=== PATIENT | male | born 1935 | race Caucasian/White ===

== ENCOUNTER 2016-08-31 13:01 | Emergency (ER) | payer OTHER ==
[2016-08-31 13:08] VITALS: RESP 16; TEMP 98.2
[2016-08-31] MEDS ORDERED: NS 1,000 ML IV ONE (13:25)
[2016-08-31] MEDS ORDERED: PANTOPRAZOLE SODIUM 40 MG in NS 100 ML IV ONE (13:26)
--- NOTE | 2016-08-31 13:29 | EDPHY ---
H & P Stated Complaint: black tarry stool starting this am, mild gen abd pain Time Seen by Provider: 08/31/16 13:11 HPI/ROS: CHIEF COMPLAINT: Dark stool HISTORY OF PRESENT ILLNESS: The patient is an 81-year-old man with a history of only of hypertension and BPH who is visiting from [place] and comes to the emergency department with his sons says complaining of 2 episodes of black stool today. 1 was formed 1 was loose. He also has some chronic abdominal discomfort. He states that he has had this discomfort for about 4 years as well as occasionally Hemoccult positive stool but no abdominal pain. His last colonoscopy was about 5 or 6 years ago and had a couple benign polyps. His primary MD and is recommending has another. The he denies any history of GERD. He denies chest pain. Denies shortness of breath or lightheadedness. He has not had a fever. He is passing gas. His abdomen is not tender. REVIEW OF SYSTEMS: Constitutional: denies: chills, fever, recent illness, recent injury EENTM: denies: blurred vision, double vision, nose congestion Respiratory: denies: cough, shortness of breath Cardiac: denies: chest pain, irregular heart rate, lightheadedness, palpitations Gastrointestinal/Abdominal: See HPI Genitourinary: denies: dysuria, frequency, hematuria, pain Musculoskeletal: denies: joint pain, muscle pain Skin: denies: lesions, rash, jaundice, bruising Neurological: denies: headache, numbness, paresthesia, tingling, dizziness, weakness Hematologic/Lymphatic: denies: blood clots, easy bleeding, easy bruising Immunologic/allergic: denies: HIV/AIDS, transplant EXAM: GENERAL: Well-appearing, well-nourished and in no acute distress. HEAD: Atraumatic, normocephalic. EYES: Pupils equal round and reactive to light, extraocular movements intact, sclera anicteric, conjunctiva are normal. ENT: TMs normal, nares patent, oropharynx clear without exudates. Moist mucous membranes. NECK: Normal range of motion, supple without lymphadenopathy or JVD. LUNGS: Breath sounds clear to auscultation bilaterally and equal. No wheezes rales or rhonchi. HEART: Regular rate and rhythm without murmurs, rubs or gallops. ABDOMEN: Soft, nontender, normoactive bowel sounds. No guarding, no rebound. No masses appreciated. : Patient has dark black formed stool, no visible hemorrhoids or fissures, no tenderness BACK: No CVA tenderness, no spinal tenderness, step-offs or deformities EXTREMITIES: Normal range of motion, no pitting or edema. No clubbing or cyanosis. NEUROLOGICAL: Cranial nerves II through XII grossly intact. Normal speech, normal gait. 5/5 strength, normal movement in all extremities, normal sensation PSYCH: Normal mood, normal affect. SKIN: Warm, dry, normal turgor, no visible rashes or lesions. Source: Patient Exam Limitations: No limitations - Personal History Current Tetanus/Diphtheria Vaccine: Unsure Current Tetanus Diphtheria and Acellular Pertussis (TDAP): Unsure - Medical/Surgical History Hx Asthma: No Hx Chronic Respiratory Disease: No Hx Diabetes: No Hx Cardiac Disease: No Hx Renal Disease: No Hx Cirrhosis: No Hx Alcoholism: No Hx HIV/AIDS: No Hx Splenectomy or Spleen Trauma: No Other PMH: htn. BPH. colonoscopy polyps benign 2012 - Family History Significant Family History: No pertinent family hx - Social History Smoking Status: Never smoked Alcohol Use: Sober Drug Use: None Constitutional: Initial Vital Signs Temperature (C) 36.8 C 08/31/16 13:04 Heart Rate 84 08/31/16 13:04 Respiratory Rate 16 08/31/16 13:04 Blood Pressure 167/86 H 08/31/16 13:04 O2 Sat (%) 97 08/31/16 13:04 O2 Delivery Mode Room Air Allergies/Adverse Reactions: sulfamethoxazole [From Bactrim] Allergy (Verified 08/31/16 13:03) trimethoprim [From Bactrim] Allergy (Verified 08/31/16 13:03) Home Medications: Medication Instructions Recorded Flomax 08/31/16 Lisinopril 08/31/16 Pantoprazole Sodium [Protonix] 40 mg PO DAILY #30 tab 08/31/16 Medical Decision Making - Diagnostics Imaging Results: Imaging Impressions Abdomen CT 08/31/16 13:26 Impression: 1. Duodenal inflammation. Correlation with endoscopy is recommended to exclude ulceration. 2. Diverticulosis without evidence of diverticulitis. No CT evidence of colitis or proctitis. 3. Atherosclerotic disease. Results discussed with Dr. Berger. General information for patients regarding this examination can be found at [email or web address]. If you have questions or comments about this report, please contact me at (hospital) or [phone] (cell). Imaging: Discussed imaging studies w/ communication center operator Radiologist ED Course/Re-evaluation: We discussed the test results. Patient continues to wish to go home and follow up with his primary doctors in [place]. He is flying out on Friday. His abdominal exam remains benign. His vital signs remained stable. His hematocrit is 29. 3:30 p.m. we discussed the patient's CT results which are reassuring. He has some duodenal inflammation consistent with ulcer possibly carcinoma. He and his sons understand this. They will follow up with her doctors in [place]. His vital signs remained stable. I did offer admission and workup here but they declined. We discussed symptoms to watch for indications for returning. Differential Diagnosis: Partial list of the Differential diagnosis considered include but were not limited to; duodenal ulcer, gastric cancer, colon cancer, anemia and although unlikely based on the history and physical exam, I also considered diverticulitis, appendicitis, perforation, ischemia. I discussed these differential diagnoses and the plan with the patient as well as the usual and expected course. The patient understands that the diagnosis is provisional and that in medicine we are not always correct and that further workup is often warranted. Usual and customary warnings were given. All of the patient's questions were answered. The patient was instructed to return to the emergency department should the symptoms at all worsen or return, otherwise to followup with the physician as we discussed. - Data Points Laboratory Results: Laboratory Results 08/31/16 13:30 08/31/16 13:30 08/31/16 08/31/16 08/31/16 13:30 13:30 13:30 WBC 8.08 10^3/uL 10^3/uL (3.80-9.50) RBC 4.09 10^6/uL L 10^6/uL (4.40-6.38) Hgb 13.3 g/dL L g/dL (13.7-17.5) Hct 38.3 % L % (40.0-51.0) MCV 93.6 fL fL (81.5-99.8) MCH 32.5 pg pg (27.9-34.1) MCHC 34.7 g/dL g/dL (32.4-36.7) RDW 12.9 % % (11.5-15.2) Plt Count 186 10^3/uL 10^3/uL (150-400) MPV 9.0 fL fL (8.7-11.7) Neut % (Auto) 74.0 % % (39.3-74.2) Lymph % (Auto) 14.4 % L % (15.0-45.0) Rosebud % (Auto) 9.5 % % (4.5-13.0) Eos % (Auto) 1.0 % % (0.6-7.6) Baso % (Auto) 0.6 % % (0.3-1.7) Nucleat RBC Rel Count 0.0 % % (0.0-0.2) Absolute Neuts (auto) 5.98 10^3/uL 10^3/uL (1.70-6.50) Absolute Lymphs (auto) 1.16 10^3/uL 10^3/uL (1.00-3.00) Absolute Monos (auto) 0.77 10^3/uL 10^3/uL (0.30-0.80) Absolute Eos (auto) 0.08 10^3/uL 10^3/uL (0.03-0.40) Absolute Basos (auto) 0.05 10^3/uL 10^3/uL (0.02-0.10) Absolute Nucleated RBC 0.00 10^3/uL 10^3/uL (0-0.01) Immature Gran % 0.5 % % (0.0-1.1) Immature Gran # 0.04 10^3/uL 10^3/uL (0.00-0.10) PT 13.7 SEC SEC (12.0-15.0) INR 1.06 (0.83-1.16) APTT 24.5 SEC SEC (23.0-38.0) Sodium 141 mEq/L mEq/L (134-144) Potassium 4.0 mEq/L mEq/L (3.5-5.2) Chloride 105 mEq/L mEq/L (97-110) Carbon Dioxide 26 mEq/l mEq/l (22-31) Anion Gap 10 mEq/L mEq/L (8-16) BUN 48 mg/dL H mg/dL (7-23) Creatinine 1.2 mg/dL mg/dL (0.7-1.3) Estimated GFR 58 Glucose 123 mg/dL H mg/dL (70-100) Calcium 8.7 mg/dL mg/dL (8.5-10.4) Total Bilirubin 0.8 mg/dL mg/dL (0.1-1.4) Conjugated Bilirubin 0.4 mg/dL mg/dL (0.0-0.5) Unconjugated Bilirubin 0.4 mg/dL mg/dL (0.0-1.1) AST 24 IU/L IU/L (17-59) ALT 36 IU/L IU/L (21-72) Alkaline Phosphatase 74 IU/L IU/L (38-126) Total Protein 6.5 g/dL g/dL (6.3-8.2) Albumin 3.9 g/dL g/dL (3.5-5.0) Lipase 104.0 IU/L IU/L (23-300) Stool Occult Bld Scrn 08/31/16 13:20 WBC RBC Hgb Hct MCV MCH MCHC RDW Plt Count MPV Neut % (Auto) Lymph % (Auto) Rosebud % (Auto) Eos % (Auto) Baso % (Auto) Nucleat RBC Rel Count Absolute Neuts (auto) Absolute Lymphs (auto) Absolute Monos (auto) Absolute Eos (auto) Absolute Basos (auto) Absolute Nucleated RBC Immature Gran % Immature Gran # PT INR APTT Sodium Potassium Chloride Carbon Dioxide Anion Gap BUN Creatinine Estimated GFR Glucose Calcium Total Bilirubin Conjugated Bilirubin Unconjugated Bilirubin AST ALT Alkaline Phosphatase Total Protein Albumin Lipase Stool Occult Bld Scrn POSITIVE H (NEGATIVE) Medications Given: Discontinued Medications Sodium Chloride (Ns) 1,000 mls @ 0 mls/hr IV ONCE ONE PRN Reason: Wide Open Stop: 08/31/16 13:26 Last Admin: 08/31/16 13:38 Dose: 1,000 mls Pantoprazole Sodium 40 mg/ (Sodium Chloride) 100 mls @ 200 mls/hr IV EDNOW ONE Stop: 08/31/16 13:55 Last Admin: 08/31/16 14:03 Dose: 100 mls Pantoprazole Sodium (Protonix) 40 mg PO EDNOW ONE Stop: 08/31/16 15:29 Last Admin: 08/31/16 15:44 Dose: 40 mg Departure - Departure Disposition: Home, Routine, Self-Care Clinical Impression: Upper GI bleed Condition: Fair Instructions: Gastrointestinal Bleeding (ED) Additional Instructions: Follow-up with your doctor for upper endoscopy. You have some inflammation in her duodenum anti stool that is Hemoccult positive. Suspect 1 ulcer but cannot rule out cancer. Return to the emergency department immediately few of lightheadedness weakness or bloody vomit or increased bloody stool. Referrals: KEKE WESTON [Other] - As per Instructions Prescriptions: Pantoprazole Sodium [Protonix] 40 mg PO DAILY #30 tab
[2016-08-31 13:42] LABS: % IMMATURE GRANULYOCYTES 0.5 % (0.0-1.1); ABSOLUTE IMMATURE GRANULOCYTES 0.04 10^3/uL (0.00-0.10); ADD DIFF? NO; ADD MORPH? NO; ADD SCAN? NO; ATYPICAL LYMPHOCYTE FLAG 0 (0-99); FRAGMENT RBC FLAG 0 (0-99); HEMATOCRIT 38.3 % (40.0-51.0); HEMOGLOBIN 13.3 g/dL (13.7-17.5); LEFT SHIFT FLG 10 (0-99); LIPEMIA HEMOLYSIS FLAG 90 (0-99); MEAN CELL HEMOGLOBIN 32.5 pg (27.9-34.1); MEAN CELL HEMOGLOBIN CONCENTR. 34.7 g/dL (32.4-36.7); MEAN CELL VOLUME 93.6 fL (81.5-99.8); PLATELET CLUMPS FLAG 10 (0-99); PLATELET COUNT 186 10^3/uL (150-400); RED BLOOD CELL COUNT 4.09 10^6/uL (4.40-6.38); RED CELL DISTRIBUTION WIDTH 12.9 % (11.5-15.2)
[2016-08-31 13:45] VITALS: O2SAT 96
[2016-08-31 13:50] LABS: APTT 24.5 SEC (23.0-38.0); INR 1.06 (0.83-1.16); PROTIME(PATIENT) 13.7 SEC (12.0-15.0)
[2016-08-31 13:57] LABS: ALANINE AMINOTRANSFERASE 36 IU/L (21-72); ALBUMIN 3.9 g/dL (3.5-5.0); ALKALINE PHOSPHATASE 74 IU/L (38-126); ANION GAP 10 mEq/L (8-16); ASPARTATE AMINOTRANSFERASE 24 IU/L (17-59); BILIRUBIN,TOTAL 0.8 mg/dL (0.1-1.4); BILIRUBIN-CONJUGATED 0.4 mg/dL (0.0-0.5); BILIRUBIN-UNCONJUGATED 0.4 mg/dL (0.0-1.1); CALCIUM 8.7 mg/dL (8.5-10.4); CARBON DIOXIDE 26 mEq/l (22-31); CHLORIDE 105 mEq/L (97-110); CREATININE 1.2 mg/dL (0.7-1.3); GLOMERULAR FILTRATION RATE 58; GLUCOSE 123 mg/dL (70-100); SODIUM 141 mEq/L (134-144); TOTAL PROTEIN 6.5 g/dL (6.3-8.2)
[2016-08-31] MEDS ORDERED: IOPAMIDOL (ISOVUE-300) 100 ML BTL IV ONE (14:17)
[2016-08-31 15:11] VITALS: BP 150/78; PULSE 73
[2016-08-31] MEDS ORDERED: PANTOPRAZOLE SODIUM 40 MG TAB PO ONE (15:28)
== END 2016-08-31 15:45 | disposition home or self-care (01) ==
DX: K92.2 Gastrointestinal hemorrhage, unspecified (principal); I10 Essential (primary) hypertension
CPT/HCPCS: 74177; 96365; 99285; Q9967